=== PATIENT | female | born 1965 | race Caucasian/White ===

== ENCOUNTER 2021-09-24 11:01 | Outpatient (RCR) | payer OTHER, SELFPAY ==
[2021-09-24 11:03] VITALS: BMI 29.2
== END 2021-12-09 14:01 | disposition home or self-care (01) ==
LOC: ANHDMC 11:01
PROVIDERS: PCP Internal Medicine; Visit Provider Internal Medicine Endocrinology, Diabetes & Metabolism
DX: E11.65 Type 2 diabetes mellitus with hyperglycemia (principal); Z71.3 Dietary counseling and surveillance
CPT/HCPCS: 97802

== ENCOUNTER → 2022-05-17 11:20 | Outpatient (CLI) | payer OTHER, SELFPAY ==
--- NOTE | ~2022-05-17 | MM_ITS ---
EXAMINATION: MM screening brianne BI w miguel a HISTORY: Screening mammogram TECHNIQUE: Craniocaudal and mediolateral oblique 3-D tomosynthesis images were obtained and synthetic 2-D images were generated. CAD analysis was submitted and interpreted. COMPARISON: No prior mammogram is available for comparison at this institution. BREAST PARENCHYMAL COMPOSITION: There are scattered areas of fibroglandular density. FINDINGS: There is no evidence of suspicious mass, calcification, or architectural distortion to sugg est malignancy in either breast. There has been no suspicious interval change. IMPRESSION: 1. No mammographic evidence of malignancy. 2. Recommend routine screening mammography in one year. BI-RADS Category 1: Negative Reviewed, dictated and finalized at location A.
== END ==
PROVIDERS: PCP Internal Medicine; Visit Provider Nurse Practitioner
DX: Z12.31 Encounter for screening mammogram for malignant neoplasm of breast (principal)
CPT/HCPCS: 77063; 77067

== ENCOUNTER → 2022-11-13 14:00 | Outpatient (CLI) | payer OTHER, SELFPAY ==
--- NOTE | ~2022-11-13 | MR_ITS ---
EXAMINATION: MR foot LT wo con DATE: 11/13/2022 14:37 INDICATION: Cyst on left foot TECHNIQUE: Magnetic resonance imaging (MRI) of the left fore/mid foot was performed without intraveno us contrast. Sequences included sagittal T1-weighted FSE, sagittal fluid sensitive FSE STIR, coronal PD-weighted FS FSE, coronal T1-weighted FSE, axial PD-weighted FS FSE, and axial PD-weighted FSE. COMPARISON: None FINDINGS: Bone alignment is normal. Normal marrow signal with no fracture or pathologic marrow replacing proces s. Mild polyarticular osteoarthritis involving the first metatarsophalangeal and multiple tarsometata rsal and interphalangeal joints. The Lisfranc ligament complex as well as the collateral ligament com plex at the metatarsophalangeal and interphalangeal joints are normal. Visualized portions of the fle xor and extensor tendons are normal with no tenosynovitis. There is a multilobulated T2 hyperintense subcutaneous lesion extending approximately 3.9 cm medial c ollateral, 1.3 cm proximal to distal and 6 mm dorsal plantar thickness located dorsal to the extensor tendons at the level of the bases of the metatarsals. No evident associated solid soft tissue compon ent. There appears to be a feeding vessel both at the lateral distal and proximal medial margins of t he lesion and no evident neck extending to the deeper joint spaces suggesting this is more likely to represent a small superficial varicosity or vascular malformation rather than a ganglion cyst. There is a 5 mm ganglion cyst arising from the dorsal medial margin of the medial naviculocuneiform articul ation. There is an additional 5 mm ganglion cyst arising from the proximal medial margin of the first metatarsophalangeal joint. IMPRESSION: 1. 3.9 x 1.3 x 0.6 cm multilobulated subcutaneous cystic structure at the dorsum of the midfoot with suggestion of feeding and draining vessels and would favor a venous varix or other vascular malformat ion over a ganglion cyst. Reviewed, dictated and finalized at location A. FOREMAN IMPRESSION: 1. 3.9 x 1.3 x 0.6 cm multilobulated subcutaneous cystic structure at the dorsu m of the midfoot with suggestion of feeding and draining vessels and would favo r a venous varix or other vascular malformation over a ganglion cyst.
== END ==
PROVIDERS: PCP Internal Medicine; Visit Provider Podiatrist Foot & Ankle Surgery
DX: M67.479 Ganglion, unspecified ankle and foot (principal)
CPT/HCPCS: 73718

== ENCOUNTER 2023-01-20 14:53 | Emergency (ER) | payer OTHER, SELFPAY ==
[2023-01-20] VITALS (8 sets, daily range): BP systolic 110–150; BP diastolic 56–97; PULSE 89–123; RESP 13–20; TEMP 37; O2SAT 100
--- NOTE | ~2023-01-20 | XR_ITS ---
XR chest 2V DATE: 01/20/2023 15:30 INDICATION: Shortness of breath with inspiration. Weakness. TECHNIQUE: PA and lateral views COMPARISON: 12/27/2018 PA and lateral chest FINDINGS: Normal heart size. No hilar or mediastinal enlargement. No pulmonary infiltrate or consolid ation, pleural effusion or pulmonary vascular congestion or pneumothorax. Osteopenia. IMPRESSION: No active cardiopulmonary disease Reviewed, dictated and finalized at location L.
--- NOTE | 2023-01-20 14:56 | ECG_ITS ---
Measurements Intervals Mazon Rate: 107 P: 58 SC: 137 QRS: 61 QRSD: 88 T: -3 QT: 309 QTc: 413 Interpretive Statements SINUS TACHYCARDIA NONSPECIFIC ST AND T-WAVE ABNORMALITY NO PREVIOUS ECG AVAILABLE FOR COMPARISON Electronically Signed On 01-20-2023 18:07:08 CDT by Bonnie Flood M.D.
[2023-01-20 15:30] LABS: Basophils Absolute Auto 0.1 K/mm3 (0.0-0.1); Basophils Percent Auto 0.7 % (0.2-1.2); Eosinophils Absolute Auto 0.1 K/mm3 (0-0.3); Eosinophils Percent Auto 1.9 % (0-4.4); Hematocrit 38.4 % (37.0-47.0); Immature Granulocyte Absolute 0.02 K/mm3 (0.00-0.031); Immature Granulocyte Percent A 0.3 % (0-0.5); Lymphocytes Percent Auto 48.2 % (18.3-44.2); Mean Corpuscular HGB Conc 33.9 g/dl (32-36); Mean Corpuscular Hemoglobin 28.8 pg (26-34); Mean Platelet Volume 11.5 fl (7.4-10.4); Monocytes Absolute Auto 0.5 K/mm3 (0.1-0.6); Monocytes Percent Auto 7.7 % (2.6-8.5); Neutrophils Absolute Auto 2.8 K/mm3 (1.3-6.7); Neutrophils Percent Auto 41.2 % (45.5-73.1); Platelet Count Result 245 k/mm3 (150-375); Red Blood Count 4.52 M/mm3 (4.2-5.4); Red Cell Distribution Width 12.2 % (11.5-14.5); White Blood Count 6.9 K/mm3 (4.5-10.0)
[2023-01-20 15:38] LABS: Prothrombin Time 12.4 Seconds (11.1-14.7)
[2023-01-20 15:39] LABS: Partial Thromboplastin Time 23.9 SECONDS (22.3-36.8)
[2023-01-20 15:41] LABS: Alanine Aminotransferase 35 U/L (6-35); Albumin Level 4.9 g/dL (3.5-5.1); Alkaline Phosphatase 85 U/L (38-126); Anion Gap 7 mmol/L (8-16); Aspartate Amino Transferase 30 U/L (14-36); Bilirubin,Total 0.6 mg/dL (0.2-1.3); Blood Urea Nitrogen 13 mg/dL (7-17); Calcium 9.4 mg/dL (8.4-10.2); Carbon Dioxide 28 mmol/L (22-30); Chloride 101 mmol/L (98-107); Estimated CRCL calculation 79 ml/min; Estimated Glomerular Filt Rate > 60; Glucose 125 mg/dL (65-110); Lipase 82 U/L (23-300); Potassium 4.1 mmol/L (3.4-5.0); Sodium 136 mmol/L (137-145)
[2023-01-20] MEDS: ASPIRIN 81 MG CHEWABLE TABLET 324 MG PO (15:43)
[2023-01-20 15:52] LABS: Troponin I < 0.012 ng/mL (0.000-0.034)
[2023-01-20 18:40] LABS: Troponin I < 0.012 ng/mL (0.000-0.034)
--- NOTE | 2023-01-20 18:59 | ED.GENADULT ---
HPI - General Adult General Chief complaint: Shortness of Breath/Dyspnea Stated complaint: SOB/high hr Time Seen by Provider: 01/20/23 15:40 History of Present Illness HPI narrative: 57-year-old female with past medical history of diabetes presents for evaluation of rapid heart rate and possibly some shortness of breath with exertion for the past week. Patient notes that whenever she starts walking it feels as though her heart rate increases. No chest pain experience. Related Data Home Medications Medication Instructions Recorded Confirmed albuterol sulfate 90 mcg/actuation 1 inh inhalation QID PRN Wheezing 10/29/19 10/29/19 aerosol inhaler budesonide-formoterol HFA 160 2 puff inhalation Q12H PRN Wheezing 10/29/19 10/29/19 mcg-4.5 mcg/actuation aerosol inhaler (Symbicort) montelukast 10 mg tablet 10 mg PO DAILY 10/29/19 10/29/19 Allergies Allergy/AdvReac Type Severity Reaction Status Date / Time adhesive tape Allergy Intermediate TEARS SKIN Verified 01/20/23 15:43 azithromycin Allergy Mild Rash Verified 01/20/23 15:43 Penicillins Allergy Mild Rash Verified 01/20/23 15:43 erythromycin base Allergy Unknown Rash Verified 01/20/23 15:43 Sulfa (Sulfonamide Allergy Unknown Rash Verified 01/20/23 15:43 Antibiotics) Review of Systems Review of Systems: CONSTITUTIONAL: Denies fever, chills, or sweats. EYES: Denies visual changes, redness, or discharge. ENT: Denies rhinorrhea, congestion, sore throat, or otalgia. CARDIOVASCULAR: Denies chest pain, palpitations, or edema. RESPIRATORY: Denies cough or dyspnea. GASTROINTESTINAL: Denies abdominal pain, nausea, vomiting, or diarrhea. GENITOURINARY: Denies dysuria or hematuria. SKIN: Denies rash or itching. MUSCULOSKELETAL: Denies back pain, joint pain, or myalgia. NEUROLOGIC: Denies headache, numbness, or weakness. PSYCHIATRIC: Denies anxiety or depression. [facility], [facility] Past Medical History Medical History Seasonal allergies Surgical History Surgical History H/O repair of rotator cuff Social History Social History Smoking status: Never smoker Alcohol intake: current Alcohol use details: Socially Substance use: never Living arrangements: with family Occupation/Education: occupation Gender identity (if verbalized by the patient): Female Spiritual care concerns: No Exam Const: Other: GENERAL: Well-appearing, well-nourished, and in no acute distress. HEAD: Normocephalic, atraumatic. EYES: PERRLA and EOMI. ENT: Nares clear, no rhinorrhea or epistaxis. Mucous membranes moist. NECK: Supple. CHEST: Clear to auscultation. No respiratory distress. HEART: Regular rate and rhythm. No murmur heard. Normal peripheral pulses. ABDOMEN: Soft, nontender, nondistended, normal active bowel sounds. EXTREMITIES: Normal range of motion. No edema. SKIN: Warm, dry, no rash. NEURO: No focal deficits. Alert and oriented x3. PSYCH: Normal mood and affect. Course Vital Signs Vital signs: Vital Signs Temperature 98.6 F 01/20/23 14:59 Pulse Rate 120 H 01/20/23 14:59 Respiratory Rate 20 01/20/23 14:59 Blood Pressure 141/97 H 01/20/23 14:59 Pulse Oximetry 100 01/20/23 14:59 Oxygen Delivery Room Air 01/20/23 14:59 Temperature 98.6 F 01/20/23 14:59 Pulse Rate 97 01/20/23 18:19 Respiratory Rate 16 01/20/23 18:19 Blood Pressure 118/82 01/20/23 18:19 Pulse Oximetry 100 01/20/23 18:19 Oxygen Delivery Room Air 01/20/23 15:42 Medical Decision Making MDM Narrative Medical decision making narrative: Cardiac work-up is unremarkable Orthostats are quite positive EKG with a sinus tachycardia at 107 bpm OR interval of 137 QRS duration of 88 QTc of [address] changes noted Doubt PE-orthostatic positive, no chest pain no recent travel
[2023-01-20 19:33] LABS: D Dimer 0.34 ug/mL (<0.48)
== END 2023-01-20 19:22 | disposition home or self-care (01) ==
PROVIDERS: Emergency Medicine; Emergency Provider Emergency Medicine; PCP Internal Medicine
DX: R00.2 Palpitations (principal); E11.9 Type 2 diabetes mellitus without complications; R00.0 Tachycardia, unspecified; R94.31 Abnormal electrocardiogram [ECG] [EKG]
CPT/HCPCS: 36415; 71046; 80053; 83690; 84484; 85025; 85380; 85610; 85730; 93005; 99284; A9270

== ENCOUNTER 2023-02-02 10:21 | Outpatient (CLI) | payer OTHER, SELFPAY ==
[2023-02-02 11:14] LABS: Free T3 3.69 pg/mL (2.18-3.98); Free T4 Free Thyroxine 1.66 ng/dL (0.76-1.46); Thyroid Stimulating Hormone < 0.01 uIU/mL (0.36-3.74)
[2023-02-05 06:21] LABS: Thyroid Peroxidase Antibodies 11 IU/mL (<9)
[2023-02-05 14:13] LABS: Thyroid Stimulating Immunoglob 191 % baseline (<140)
== END 2023-02-02 10:22 | disposition home or self-care (01) ==
PROVIDERS: PCP Internal Medicine; Visit Provider Internal Medicine
DX: E05.90 Thyrotoxicosis, unspecified without thyrotoxic crisis or storm (principal)
CPT/HCPCS: 36415; 84439; 84443; 84445; 84481; 86376

== ENCOUNTER 2023-03-10 09:08 | Outpatient (CLI) | payer OTHER, SELFPAY ==
[2023-03-10 09:19] LABS: Basophils Absolute Auto 0.02 K/mm3 (0.00-0.10); Basophils Percent Auto 0.4 % (0.0-1.0); Eosinophils Absolute Auto 0.12 K/mm3 (0.02-0.50); Eosinophils Percent Auto 2.2 % (1.0-6.0); Hematocrit 38.1 % (35.0-49.0); Hemoglobin 12.3 g/dL (12.0-15.0); Immature Granulocyte Absolute 0.02 K/mm3 (0.00-0.00); Immature Granulocyte Percent A 0.4 % (0.0-0.0); Lymphocytes Absolute Auto 1.98 K/mm3 (1.10-4.50); Lymphocytes Percent Auto 36.7 % (18.0-42.0); Mean Corpuscular HGB Conc 32.3 g/dL (32.0-36.0); Mean Corpuscular Hemoglobin 27.5 pg (27.0-31.0); Mean Corpuscular Volume 85.2 fL (78.0-102.0); Mean Platelet Volume 11.2 fl (9.2-11.8); Monocytes Absolute Auto 0.32 K/mm3 (0.10-0.90); Monocytes Percent Auto 5.9 % (2.0-11.0); Neutrophils Absolute Auto 2.9 K/mm3 (1.7-7.2); Neutrophils Percent Auto 54.4 % (50.0-70.0); Platelet Count Result 193 K/mm3 (150-420); Red Blood Count 4.47 M/mm3 (4.20-5.40); Red Cell Distribution Width 11.7 % (11.6-14.4); White Blood Count 5.4 K/mm3 (4.8-10.8)
[2023-03-10 10:17] LABS: Alanine Aminotransferase 20 U/L (14-59); Albumin Level 3.8 g/dL (3.4-5.0); Alkaline Phosphatase 80 U/L (46-116); Anion Gap 10 mmol/L (8-16); Aspartate Amino Transferase 19 U/L (15-37); Bilirubin,Total 0.5 mg/dL (0.00-1.00); Blood Urea Nitrogen 13 mg/dL (7-18); Calcium 8.8 mg/dL (8.5-10.1); Carbon Dioxide 29 mmol/L (21-32); Chloride 103 mmol/L (98-108); Estimated Glomerular Filt Rate > 60; Free T4 Free Thyroxine 1.34 ng/dL (0.76-1.46); Glucose 132 mg/dL (70-99); Osmolality Calculated 296 mOsm/kg (285-295); Potassium 3.8 mmol/L (3.5-5.1); Sodium 142 mmol/L (136-145); Total Protein 6.6 g/dL (6.4-8.2)
[2023-03-10 10:38] LABS: Thyroid Stimulating Hormone < 0.01 uIU/mL (0.36-3.74)
== END 2023-03-10 09:09 | disposition home or self-care (01) ==
LOC: CHSLAB 09:10
PROVIDERS: PCP Internal Medicine; Visit Provider Internal Medicine
DX: E05.90 Thyrotoxicosis, unspecified without thyrotoxic crisis or storm (principal)
CPT/HCPCS: 36415; 80053; 84439; 84443; 84481; 85025

== ENCOUNTER 2023-03-17 13:41 | Outpatient (CLI) | payer OTHER, SELFPAY ==
--- NOTE | ~2023-03-17 | NM_ITS ---
EXAMINATION: NM thyroid scan w uptake DATE: 03/19/2023 08:29 INDICATION: Hyperthyroidism. Thyroid nodule. COMPARISON: None. TECHNIQUE: 0.347 mCi I-123 was administered orally. Scintigraphic images of the thyroid gland were o btained at 24 hours. Thyroid uptake was calculated by the technologist. FINDINGS: The thyroid uptake is 43% (normal 10-30%), with the right lobe measuring 18% uptake and the left 25%. There is no focal area of decreased or increased activity to suggest hypofunctioning or hyperfunctio jenna nodule. IMPRESSION: 1. Increased 24-hour iodine uptake, consistent with hyperthyroidism. Reviewed, dictated and finalized at location A.
== END 2023-03-17 13:42 | disposition home or self-care (01) ==
PROVIDERS: PCP Internal Medicine; Visit Provider Internal Medicine
DX: E04.1 Nontoxic single thyroid nodule (principal); E05.90 Thyrotoxicosis, unspecified without thyrotoxic crisis or storm
CPT/HCPCS: 78014; A9516

== ENCOUNTER → 2023-11-10 13:08 | Outpatient (CLI) | payer OTHER, SELFPAY ==
--- NOTE | ~2023-11-10 | MM_ITS ---
EXAMINATION: MM screening brianne BI w miguel a HISTORY: Screening mammogram TECHNIQUE: Craniocaudal and mediolateral oblique 3-D tomosynthesis images were obtained and synthetic 2-D images were generated. CAD analysis was submitted and interpreted. COMPARISON: 05/17/2022, 10/14/2018 bilateral screening mammogram examinations BREAST PARENCHYMAL COMPOSITION: There are scattered areas of fibroglandular density. FINDINGS: There is no evidence of suspicious mass, calcification, or architectural distortion to sugg est malignancy in either breast. There has been no suspicious interval change. IMPRESSION: 1. No mammographic evidence of malignancy. 2. Recommend routine screening mammography in one year. BI-RADS Category 1: Negative Reviewed, dictated and finalized at location A. 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
--- NOTE | ~2023-11-10 | DEXA_ITS ---
Bone Density Report Name: BEVERLEY BUTCHER Age: 58 Sex: Female Ethnicity: White Date of : 1965 Indication: postmenopausal; screening for osteoporosis; hysterectomy; Referring Provider: Krystle Lind Study: Bone densitometry was performed. Exam Date: November 10, 2023 Accession number: [id number] Bone Density: Region BMD T-score Z-score Classification AP Spine (L1, L2, L3) 0.945 -0.7 0.5 Normal Femoral Neck (Left) 0.738 -1.0 0.1 Normal Total Hip (Left) 0.880 -0.5 0.2 Normal Femoral Neck (Right) 0.706 -1.3 -0.2 Osteopenia Total Hip (Right) 0.821 -1.0 -0.2 Normal Total Hip Mean 0.851 -0.8 0.0 Normal World Health Organization criteria for BMD impression classify patients as: Normal (T-score at or above -1.0), Osteopenia (T-score between -1.0 and -2.5), or Osteoporosis (T-score at or below -2.5). 10-year Fracture Risk(1): Major Osteoporotic Fracture 6.2% Hip Fracture 0.4% Reported Risk Factors: [place] (), Neck BMD=0.706, BMI=21.6 (1) FRAX(R) Version 3.08. Fracture probability calculated for an untreated patient. Fracture probability may be lower if the patient has received treatment. Clinical Information Provided by Patient: Has the following medical conditions: Hysterectomy Patient maximum height was 68.1 Menopause Age: 47 No regular weight bearing exercise Does not regularly consume dairy products Drinks caffeinated beverages Onset of menses at age 12 Number of children 1 Impression: The patient has low bone mass, based on the Right Femoral Neck T-score. The patient has an estimated ten-year risk of hip fracture of 0.4% and an estimated ten-year risk of major fracture of 6.2%, based on the WHO FRAX algorithm. Discussion: BONE DENSITY IS LOW AT ONE OR MORE SKELETAL SITES. This patient's lowest T-score is low at one or more skeletal sites. It meets the World Health Organization's (WHO) criteria for ?low bone mass? (T-score between -1.0 and -2.5). The patient's 10-year risk of fracture as calculated by FRAX is less than the threshold where pharmacological therapy is recommended by the National Osteoporosis Foundation (NOF). However, all treatment decisions require clinical judgment and consideration of individual patient factors, including patient preferences, comorbidities, previous drug use, risk factors not captured in the FRAX model (e.g., frailty, falls, vitamin D deficiency, increased bone turnover, interval significant decline in bone density) and possible under or overestimation of fracture risk by FRAX. The patient should follow a healthful lifestyle (good nutrition with adequate calcium and vitamin D, and appropriate weight-bearing exercise). Follow-Up: Consider repeating this study in 2 to 3 years to reassess this patient's status, or sooner if there is some new clinic
== END ==
PROVIDERS: PCP Internal Medicine; Visit Provider Obstetrics & Gynecology
DX: Z12.31 Encounter for screening mammogram for malignant neoplasm of breast (principal); M85.89 Other specified disorders of bone density and structure, multiple sites; E28.319 Asymptomatic premature menopause
CPT/HCPCS: 77063; 77067; 77080

== ENCOUNTER 2024-09-14 09:50 | Outpatient (CLI) | payer OTHER, SELFPAY ==
--- NOTE | ~2024-09-14 | CT_ITS ---
CT IAC/mastoids BI wo con Ordering provider: Kishan ColungaMD Technique: CT temporal bones was performed by obtaining thin slice axial images. Coronal and sagittal reformatted images were also obtained. No contrast was administered.Radiation reduction technique ut ilized.The dose-length product was 214.57 IV mGy-cm. Reason for exam: . Sensation of fullness in both ears . Comparison: None. Findings: RIGHT TEMPORAL BONE: The mastoid air cells are normal and well aerated. The external auditory canal is normal and well aerated. The tympanic membrane as visualized is intact and normal. The middle ear (including the epitympanum, mesotympanum and hypotympanum) is normal and well aerated. The tegmen ty mpani is intact. The scutum is normal. The auditory ossicles are normal. The cochlea, vestibule, ve stibular and cochlear aqueduct are normal. The semicircular canals are normal. The facial nerve can al is normal. The internal auditory canal is normal. The carotid canal and jugular foramen are nor mal. The temporomandibular joint is normal. LEFT TEMPORAL BONE: The mastoid air cells are normal and well aerated. The external auditory canal is normal and well aerated. The tympanic membrane as visualized is intact and normal. The middle ear ( including the epitympanum, mesotympanum and hypotympanum) is normal and well aerated. The tegmen tymp ani is intact. The scutum is normal. The auditory ossicles are normal. The cochlea, vestibule, ves tibular and cochlear aqueduct are normal. The semicircular canals are normal. The facial nerve carlo l is normal. The internal auditory canal is normal. The carotid canal and jugular foramen are norm al. The temporomandibular joint is normal. The visualized brain parenchyma, paranasal sinuses, and superficial soft tissues are normal for patie nt's age. IMPRESSION: No definite abnormality seen bilaterally. Reviewed, dictated and finalized at location A. [employer] STORE
--- NOTE | ~2024-09-14 | CT_ITS ---
CT sinus wo con Ordering provider: Kishan Colunga, History: . Sensation of fullness in both ears . Comparison: None. Technique: Thin slice Scans CT of the paranasal sinuses was performed with coronal and sagittal refor matted images. No IV contrast. . Automated exposure control and iterative reconstruction technique w ere employed. The dose-length product was 283.55 mGy-cm. Findings: NASAL SEPTUM: Mild left nasal septal deviation. OSTEOMEATAL UNITS: Bilaterally patent. NASAL TURBINATES AND NASOPHARYNX: Normal. PARANASAL SINUSES: Well aerated. Left maxillary sinus disease. VISUALIZED MASTOIDS: Normal as visualized. BONES: Normal. SUPERFICIAL SOFT TISSUES/VISUALIZED BRAIN PARENCHYMA: Normal. IMPRESSION: Mild left maxillary sinus disease. Reviewed, dictated and finalized at location A. INVESTIGATOR
== END 2024-09-14 09:51 | disposition home or self-care (01) ==
LOC: MICIMG 09:51
PROVIDERS: PCP Internal Medicine; Visit Provider Otolaryngology
DX: H93.8X3 Other specified disorders of ear, bilateral (principal); J01.00 Acute maxillary sinusitis, unspecified
CPT/HCPCS: 70480; 70486

== ENCOUNTER 2024-09-19 07:55 | Outpatient (CLI) | payer OTHER, SELFPAY ==
--- NOTE | ~2024-09-19 | MM_ITS ---
EXAMINATION: MM diagnostic brianne BI w miguel a HISTORY: Breast pain TECHNIQUE: Additional 3-D tomosynthesis images of the breasts were performed and synthetic 2-D images were generated. CAD analysis was submitted and interpreted. COMPARISON: Comparison to multiple prior studies sequentially, with oldest reviewed study dated 07/06. BREAST PARENCHYMAL COMPOSITION: Dense: The breasts are heterogeneously dense, which may obscure small masses FINDINGS: The breasts are stable. No new masses, calcifications or architectural distortion in either breast to suggest malignancy. IMPRESSION: 1. No evidence for malignancy in either breast. 2. Routine yearly screening mammogram and regular clinical breast examination are recommended. BI-RADS Category 1: Negative Reviewed, dictated and finalized at location B. 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 No evidence for malignancy in either breast. 2. Routine yearly screening mammogram and regular clinical breast examination a re recommended. BI-RADS Category 1: Negative
== END 2024-09-19 07:56 | disposition home or self-care (01) ==
LOC: MICIMG 07:55
PROVIDERS: PCP Internal Medicine; Visit Provider Obstetrics & Gynecology
DX: N64.4 Mastodynia (principal)
CPT/HCPCS: 77062; 77066; G0279

== ENCOUNTER 2025-09-21 15:58 | Outpatient (CLI) | payer OTHER, SELFPAY ==
--- NOTE | ~2025-09-21 | MM_ITS ---
EXAMINATION: MM screening brianne BI w miguel a HISTORY: Screening TECHNIQUE: Craniocaudal and mediolateral oblique 3-D tomosynthesis images were obtained and synthetic 2-D images were generated. CAD analysis was submitted and interpreted. COMPARISON: Comparison to multiple prior studies sequentially, with oldest reviewed study dated 08/25/2016. BREAST PARENCHYMAL COMPOSITION: Dense: The breasts are heterogeneously dense, which may obscure small masses FINDINGS: There is no evidence of suspicious mass, calcification, or architectural distortion to suggest malignancy in either breast. There has been no suspicious interval change. IMPRESSION: 1. No mammographic evidence of malignancy. 2. Recommend routine screening mammography in one year. BI-RADS Category 1: Negative Reviewed, dictated and finalized at location O. 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
== END 2025-09-21 15:59 | disposition home or self-care (01) ==
LOC: MICIMG 15:59
PROVIDERS: PCP Internal Medicine; Visit Provider Obstetrics & Gynecology
DX: Z12.31 Encounter for screening mammogram for malignant neoplasm of breast (principal)
CPT/HCPCS: 77063; 77067